=== PATIENT | male | born 1980 | race Caucasian/White ===

== ENCOUNTER → 2020-08-08 15:24 | Outpatient (BNVA) | payer OTHER, SELFPAY | PROVIDERS: Visit Provider Internal Medicine Cardiovascular Disease | DX: R06.00 Dyspnea, unspecified (principal); G47.30 Sleep apnea, unspecified; Z86.79 Personal history of other diseases of the circulatory system | CPT/HCPCS: 99212 ==

== ENCOUNTER 2020-09-05 15:41 | Outpatient (REF) | payer OTHER, SELFPAY ==
--- NOTE | 2020-09-05 | PFT_ITS ---
INDICATION: Shortness of breath. SPIROMETRY: The FEV1 to FVC of 83% with an FEV1 of 3.41 L, which is 90% predicted, and an FVC of 4.13 L, which is 87% predicted. No significant response to bronchodilators noted. Maximum voluntary ventilation 80% predicted. LUNG VOLUMES: Total lung capacity 90% predicted with an expiratory reserve volume of 38% predicted, likely secondary to an elevated BMI. DIFFUSION CAPACITY: DLCO 102% predicted. COMPARISONS: None. INTERPRETATION: No obstructive nor restrictive ventilatory defects have been identified. No significant response to bronchodilators noted. The patient did have a mild decrease in maximum voluntary ventilation, which could be due to deconditioning. Lung volumes were within normal limits, although a decrease in the expiratory reserve volume secondary to an elevated BMI. Diffusion capacity was completely normal. If asthma is in the differential, methacholine challenge may be helpful in assessing for hyper-reactive airways, otherwise clinical correlation warranted. MD ADELSO Dillon/PETE / [id number]
== END 2020-09-05 15:42 | disposition home or self-care (01) ==
LOC: HO.RESP 15:41
PROVIDERS: Visit Provider Internal Medicine Cardiovascular Disease
DX: R06.00 Dyspnea, unspecified (principal)
CPT/HCPCS: 94060; 94727; 94729